=== PATIENT | female | born 1995 | race Hispanic/Latino ===

== ENCOUNTER 2019-12-29 18:58 | Emergency (ER) | payer OTHER ==
[2019-12-29] MEDS ORDERED: MECLIZINE HCL 25 MG TABLET ONE (19:39)
== END 2019-12-29 21:15 | disposition home or self-care (01) ==
LOC: EDH 18:58
DX: H81.399 Other peripheral vertigo, unspecified ear (principal); Z98.890 Other specified postprocedural states
CPT/HCPCS: 99282